=== PATIENT | female | born 1995 | race Hispanic/Latino ===

== ENCOUNTER 2024-11-20 05:42 | Inpatient (IN) | payer BC, MEDICAID ==
[2024-11-19 11:53] LABS: Hematocrit 35.4 % (34.9-44.5); Hemoglobin 12.3 g/dL (12.0-15.5); Platelet Count 271 10x3/uL (150-450)
[2024-11-19 12:26] LABS: Syphilis Antibody Index 0.08 S/CO (<1.00 Non-Reactive)
[2024-11-19 12:28] LABS: Hep B Surf Ag Non-Reactive S/CO (NonReactive)
[2024-11-20] MEDS ORDERED: Azithromycin 500 MG in Sodium Chloride 0.9% 250 ML 250 ML IVPB SCH (06:27)
[2024-11-20] MEDS ORDERED: Diphenoxylate HCl/Atropine Tablet PO PRN (06:27)
[2024-11-20] MEDS ORDERED: Ondansetron PF 4 MG/2 ML Vial IVP PRN ×3 (06:27→12:20)
[2024-11-20] MEDS ORDERED: hydrALAZINE 20 MG/ML VIAL SLOW IVP PRN ×2 (06:27→12:20)
[2024-11-20] MEDS ORDERED: Methylergonovine 0.2 MG/ML VIAL IM PRN (06:27)
[2024-11-20] MEDS ORDERED: Bicitra 30 ML UDCUP PO PRN (06:27)
[2024-11-20] MEDS ORDERED: Carboprost 250 MCG/ML AMP IM PRN (06:27)
[2024-11-20] MEDS ORDERED: Tranexamic Acid 1,000 MG/10 ML VIAL IVP PRN (06:27)
[2024-11-20] MEDS ORDERED: Oxytocin 30 units/NS 500 ML 500 ML IV SCH (06:27)
[2024-11-20 06:34] VITALS: BMI 33.3
[2024-11-20] MEDS: Famotidine/PF 20 mg/2ml Vial SLOW IVP PRN (07:23)
[2024-11-20] MEDS ORDERED: Meperidine HCl/PF 25 MG (1 mL) VIAL SLOW IVP PRN (08:49)
[2024-11-20] MEDS ORDERED: HYDROmorphone 0.5 MG/0.5 ML SYRINGE SLOW IVP PRN (08:49)
[2024-11-20] MEDS ORDERED: Ketorolac Tromethamine 30 MG (1 mL) VIAL IVP PRN (08:49)
[2024-11-20] MEDS ORDERED: Communication Order-Pharmacy FS SCH (09:00)
[2024-11-20] MEDS: Ketorolac Tromethamine 30 MG (1 mL) VIAL IVP SCH ×2 (10:28→16:23)
[2024-11-20] MEDS: Ondansetron PF 4 MG/2 ML Vial IVP PRN (11:03)
[2024-11-20] MEDS: diphenhydrAMINE 50 MG/ML VIAL IVP PRN (12:15)
[2024-11-20] MEDS ORDERED: Lanolin Ointment 7 GM TUBE TOP PRN (12:20)
[2024-11-20] MEDS ORDERED: diphenhydrAMINE 25 MG CAP PO PRN (12:20)
[2024-11-20] MEDS ORDERED: Bisacodyl 10 MG SUPP PR PRN (12:20)
[2024-11-20] MEDS: Dexamethasone 10 MG/ML VIAL ONE (13:33)
[2024-11-20] MEDS: Erythromycin Base 0.5% Oint 1 GM TUBE ONE (13:34)
[2024-11-20] MEDS: Phenylephrine 40 MG/NS 250 ML 250 ML ONE (13:34)
[2024-11-20] MEDS: Hepatitis B Vaccine 10 MCG/0.5 ML SYR ONE (13:34)
[2024-11-20] MEDS: Ondansetron PF 4 MG/2 ML Vial ONE (13:34)
[2024-11-20] MEDS: Oxytocin 10 UNITS/ML VIAL ONE (13:34)
[2024-11-20] MEDS: diphenhydrAMINE 50 MG/ML VIAL ONE (13:35)
[2024-11-20] MEDS: HYDROcodone/Acetaminophen 5/325 mg Tablet PO PRN (14:00)
[2024-11-20] MEDS ORDERED: Ketorolac Tromethamine 30 MG (1 mL) VIAL IVP SCH (14:00)
[2024-11-20] MEDS ORDERED: Meperidine HCl/PF 25 MG (1 mL) VIAL IM PRN (21:00)
[2024-11-21 05:57] LABS: Hematocrit 30.8 % (34.9-44.5); Hemoglobin 10.4 g/dL (12.0-15.5); Mean Corpuscular Hemoglobin 33.8 pg (27.0-33.0); Mean Corpuscular Volume 100.0 fL (81.6-98.3); Platelet Count 223 10x3/uL (150-450); Red Blood Cell (RBC) Count 3.08 10x6/uL (3.90-5.03); White Blood Cell (WBC) Count 9.28 10x3/uL (3.5-10.5)
[2024-11-21] MEDS: Ferrous Sulfate 325 MG TAB PO SCH (07:32)
[2024-11-21] MEDS: Boostrix 0.5 ML (Tdap) VIAL (>/=7 yrs of age) IM ONE (07:32)
[2024-11-21] MEDS: Ibuprofen 800 MG TAB PO SCH (16:09)
[2024-11-21] MEDS: HYDROcodone/Acetaminophen 5/325 mg Tablet PO PRN (17:55)
[2024-11-21] MEDS ORDERED: Milk Of Magnesia 30 ML UDCUP PO PRN (18:24)
[2024-11-21] MEDS: Milk Of Magnesia 30 ML UDCUP PO SCH (18:43)
[2024-11-22] MEDS: Simethicone Chewable 80 MG TAB PO PRN (18:54)
[2024-11-23 08:38] VITALS: BP 104/68; TEMP 98.4
[2024-11-23] MEDS: HYDROcodone/Acetaminophen 10/325 mg Tablet PO PRN (15:06)
== END 2024-11-23 16:40 | disposition home or self-care (01) | DRG 788 ==
LOC: CSHLD 05:42 → CSHPP 12:55
PROVIDERS: ADMIT Family Medicine; ATTEND Family Medicine
PROC: 10D00Z1 Extraction of Products of Conception, Low, Open Approach (ICD-10-PCS; principal; 2024-11-20)
DX: O34.211 Maternal care for low transverse scar from previous cesarean delivery (principal); Z3A.39 39 weeks gestation of pregnancy; Z37.0 Single live birth
CPT/HCPCS: 51702; 85014; 85018; 85027; 85049; 86780; 86850; 86900; 86901; 87340; C1889; J1100; J1200; J1308; J1885; J2274; J2310; J2405; J2590; J3010; J7120